=== PATIENT | female | born 1960 | race Caucasian/White ===

== ENCOUNTER → 2021-01-11 11:09 | Outpatient (CLI) | payer OTHER, SELFPAY ==
--- NOTE | 2021-01-11 11:15 | DI.MRI.S_ITS ---
PROCEDURE: MR SHOULDER LT WO CON INDICATIONS: Left Rotator cuff strain TECHNIQUE: Noncontrast oblique coronal T2 fast spin echo with fat saturation, oblique sagittal T1 spin echo and T2 fast spin echo with fat saturation, axial T1 spin echo and T2 fast spin echo with fat saturation through the shoulder. COMPARISON: None. FINDINGS: Image quality: Excellent. Rotator cuff: There is full-thickness tear of the supraspinatus. No tendon retraction. Mild supraspinatus muscle atrophy. There is partial-thickness tear of the infraspinatus and subscapularis tendons with associated tendinosis. Sagittal images demonstrate infraspinatus or subscapularis muscle atrophy. Bones and bursae: No bone marrow contusions or fractures. Moderate acromioclavicular and glenohumeral joint degeneration. The acromion demonstrates conventional anatomy, without an os acromiale. Small subcoracoid bursal fluid is present. Capsule and soft tissues: In the absence of intra-articular contrast, the labrum and glenohumeral ligaments appear intact. The long head of the biceps tendon demonstrates normal location and morphology. The rotator interval appears normal, without fibrosis. The coracohumeral ligament is normal in thickness. IMPRESSION: 1. Full-thickness tear of the supraspinatus tendon. 2. Partial-thickness tear of the infraspinatus and subscapularis tendons. 3. Moderate acromioclavicular and glenohumeral joint degeneration. 4. Small amount of subcoracoid fluid suggesting mild bursitis. Dictated by: Angela Parnell M.D. on 01/11/2021 at 11:43 Transcribed by: MISAEL on 01/11/2021 at 11:47 Approved by: Angela Parnell M.D. on 01/11/2021 at 12:26
== END ==
PROVIDERS: PCP Family Medicine; Referring Provider Family Medicine; Visit Provider Family Medicine
DX: S46.012A Strain of muscle(s) and tendon(s) of the rotator cuff of left shoulder, initial encounter (principal); M19.012 Primary osteoarthritis, left shoulder; X58.XXXA Exposure to other specified factors, initial encounter
CPT/HCPCS: 73221

== ENCOUNTER 2021-05-16 10:19 | Emergency (ER) | payer OTHER, SELFPAY ==
--- NOTE | 2021-05-16 | DI.RAD.S_ITS ---
PROCEDURE: XR WRIST LT MIN 3V INDICATIONS: BROKEN WRIST TECHNIQUE: 4 views of the wrist were acquired. COMPARISON: None. FINDINGS: Bones: No fractures or dislocations. No suspicious bony lesions. Scaphoid view: No trauma to the scaphoid is found but there is a distal radius Colles'fracture, which appears likely intra-articular. Soft tissues: No suspicious soft tissue calcifications. IMPRESSION: Distal radius Colles'fracture, likely a intra-articular. Scaphoid fracture is not found. Dictated by: Lobo Yancey M.D. on 05/16/2021 at 11:18 Approved by: Lobo Yancey M.D. on 05/16/2021 at 11:19
[2021-05-16 10:25] VITALS: BP 122/82; PULSE 70; RESP 14; TEMP 36.3; O2SAT 99
--- NOTE | 2021-05-16 10:36 | DI.RAD.S_ITS ---
PROCEDURE: XR FOREARM LT 2V INDICATIONS: include up to elbow...couldn't find the right order, fall TECHNIQUE: 2 views of the forearm were acquired. COMPARISON: None. FINDINGS: Bones: No dislocations. No suspicious bony lesions. Diagonal fractures are present at the distal radius, best seen on one view only, and possibly extending into the articular surface Soft tissues: No suspicious soft tissue calcifications or masses. IMPRESSION: Distal radius Colles' fracture, possibly intra-articular. Dictated by: Lobo Yancey M.D. on 05/16/2021 at 11:17 Approved by: Lobo Yancey M.D. on 05/16/2021 at 11:18
--- NOTE | 2021-05-16 11:23 | ED.UPPEXIN ---
HPI - Extremity Injury (Upper) General Chief Complaint: Extremity Injury, Upper Stated Complaint: fell in [place] Sat night, suspects broken left arm Time Seen by Provider: 05/16/21 11:19 Source: patient Mode of arrival: Ambulatory Limitations: no limitations History of Present Illness HPI narrative: Patient is a 60-year-old female who presents with left wrist pain and injury. She says 2 days ago she was walking in the was when she got stick in her shoe lace and she tripped and fell. She made a splint and Cob[place] on it starting has a sling from a recent rotator cuff surgery. She has been taking oxycodone for her rotator cuff surgery but is almost out. She says it did help. Tetanus is up-to-date. She denies numbness or tingling in her fingertips. Related Data Home Medications Medication Instructions Recorded Confirmed aspirin 81 mg tablet 81 mg PO DAILY 05/16/21 05/16/21 oxycodone 5 mg tablet 5 mg PO Q4-6H PRN 05/16/21 05/16/21 Previous Rx's Medication Instructions Recorded oxycodone 5 mg tablet 5 mg PO Q6H PRN #10 tab 05/16/21 Allergies Allergy/AdvReac Type Severity Reaction Status Date / Time acetaminophen Allergy Intermediate Rash Verified 05/16/21 10:34 Review of Systems Review of Systems Narrative: GENERAL: Denies chills,fever HEENT: Denies throat pain RESPIRATORY: Denies dyspnea, cough, wheezing CARDIOVASCULAR: Denies chest pain, palpitations GASTROINTESTINAL: Denies nausea, vomiting MUSCULOSKELETAL: See HPI SKIN: No rash, no laceration, no pruritus NEUROLOGIC: Denies weakness, dizziness, headache, numbness 8 point review of systems is negative except for those stated above and HPI Patient History Social History Smoking Status: Former smoker Smoking Status: Former smoker alcohol intake frequency: 3 or more drinks per day Alcohol type: beer Substance Use Type: marijuana Exam Initial Vital Signs Initial Vital Signs: Vital Signs Temperature 97.4 F L 05/16/21 10:25 Pulse Rate 70 05/16/21 10:25 Respiratory Rate 14 05/16/21 10:25 Blood Pressure 122/82 05/16/21 10:25 Pulse Oximetry 99 05/16/21 10:25 GENERAL: Well-appearing, well-nourished and in no acute distress. CARDIOVASCULAR: peripheral pulses in tact, cap refill <2 sec RESPIRATORY: No respiratory distress, speaks in full sentences without difficulty EXTREMITIES: Normal range of motion, no clubbing or edema. Neurovascularly intact Left upper extremity distal radial pulse intact mild swelling sensation between 1st and 2nd digit intact no elbow pain or discomfort. NEUROLOGICAL: Cranial nerves II through XII grossly intact. Normal gait and speech. SKIN: Warm, dry, no petechiae, no rashes or lesions. Procedures Orthopedic Splinting/Casting Injury #1: Upper Extremity Injury Location: wrist Post splinting neuro exam: intact Post splinting vascular exam: intact Placed by: Nursing Course Orders Ordered: ED Orders 05/16/21 10:36 XR forearm LT 2V Stat Vital Signs Vital signs: Vital Signs - 8 hr 05/16/21 10:25 05/16/21 12:44 Temperature 97.4 F L Pulse Rate 70 61 Respiratory Rate 14 Blood Pressure 122/82 148/75 H Pulse Oximetry 99 99 MDM - Extremity Injury (Upper) Imaging Data Extremity x-ray #1: Radiologist's Impression: PROCEDURE: XR WRIST LT MIN 3V INDICATIONS: BROKEN WRIST TECHNIQUE: 4 views of the wrist were acquired. COMPARISON: None. FINDINGS: Bones: No fractures or dislocations. No suspicious bony lesions. Scaphoid view: No trauma to the scaphoid is found but there is a distal radius Colles'fracture, which appears likely intra-articular. Soft tissues: No suspicious soft tissue calcifications. IMPRESSION: Distal radius Colles'fracture, likely a intra-articular. Scaphoid fracture is not found. Dictated by: Lobo Yancey M.D. on 05/16/2021 at 11:18 Approved by: Lobo Yancey M.D. on 05/16/2021 at 11:19 Extremity x-ray #2: Radiologist's Impression: PROCEDURE: XR FOREARM LT 2V INDICATIONS: include up to elbow...couldn't find the right order, fall TECHNIQUE: 2 views of the forearm were acquired. COMPARISON: None. FINDINGS: Bones: No dislocations. No suspicious bony lesions. Diagonal fractures are present at the distal radius, best seen on one view only, and possibly extending into the articular surface Soft tissues: No suspicious soft tissue calcifications or masses. IMPRESSION: Distal radius Colles' fracture, possibly intra-articular. Dictated by: Lobo Yancey M.D. on 05/16/2021 at 11:17 Approved by: Lobo Yancey M.D. on 05/16/2021 at 11:18 Discharge Plan Departure Patient Disposition: Home Clinical Impression: Closed fracture of left distal radius Instructions: DI for Wrist Fracture Activity Restrictions/Additional Instructions: *You have been diagnosed with left wrist fracture *What to do: Keep wrist and splint at all times. He will need to follow-up with orthopedics to ensure proper healing. May use sling. Elevate and ice as needed. *Continue to take medications as directed Oxycodone 5 mg every 6 hours only if needed for severe pain if you should need more pain medication you need to talk with primary care provider *Follow up with your primary care provider in 2-3 days Call orthopedics tomorrow to schedule follow-up appointment *Return to ER if you should have increasing numbness tingling swelling pain or any new, worsening or concerning symptoms CONTROLLED SUBSTANCE DISCHARGE (Narcotoic/benzodiazepine/Flexeril/Phenergan) 1. You have been prescribed narcotic medications, it does have acetaminophen/Tylenol/paracetamol in it, DO NOT TAKE MORE THAN 4,00mg in 24 hours of Tylenol. TRAMADOL DOES NOT CONTAIN TYLENOL 2. Please understand that we cannot provide further refills of narcotics, benzodiazepines or controlled substances through the ED and her pain management will need to be through your provider. 3. While on these medications you cannot drive or operate heavy machinery. 4. You cannot sign legal documents or perform any duties such as this. 5. As long as you're taking opiate pain medications he should also be taking a stool softener such as Colace, Dulcolax, MiraLAX or prune juice, to help avoid constipation. Prescriptions: New oxycodone 5 mg tablet 5 mg PO Q6H PRN (Reason: pain) Qty: 10 RF: 0 No Action Adult Low Dose Aspirin 81 mg Tablet 81 mg PO DAILY RF: 0 oxycodone 5 mg tablet 5 mg PO Q4-6H PRN (Reason: Pain (Scale Score 7-10)) RF: 0 Referrals: Moose Botello MD [Physician] -
[2021-05-16 12:44] VITALS: BP 148/75; PULSE 61; O2SAT 99
== END 2021-05-16 13:08 | disposition home or self-care (01) ==
PROVIDERS: Emergency Provider Emergency Medicine
DX: S52.502A Unspecified fracture of the lower end of left radius, initial encounter for closed fracture (principal); W19.XXXA Unspecified fall, initial encounter
CPT/HCPCS: 29125; 73090; 73110; 99283

== ENCOUNTER → 2021-08-18 08:49 | Outpatient (CLI) | payer OTHER, SELFPAY ==
[2021-08-18 20:01] LABS: Add Manual Diff / Slide Review NO; Basophils Absolute Auto 100 /uL (0-100); Basophils Percent Auto 0.6 % (0-2); Eosinophils Absolute Auto 100 /uL (0-450); Eosinophils Percent Auto 1.1 % (2-4); Hematocrit 42.4 % (36-46); Hemoglobin 14.4 g/dL (12.0-16.0); Lymphocytes Absolute Auto 2300 /uL (1100-4500); Lymphocytes Percent Auto 28.8 % (25-40); Mean Corpuscular Hemoglobin 32.7 PG (26-34); Mean Corpuscular Volume 96.3 fL (80-100); Monocytes Absolute Auto 600 /uL (0-900); Monocytes Percent Auto 7.1 % (3-14); Neutrophils Absolute Auto 4900 /uL (1500-7000); Neutrophils Percent Auto 62.4 % (50-75); Platelet Count 210 X10^3/uL (150-400); Red Blood Cell Count 4.41 X10^6/uL (4.0-5.2); White Blood Cell Count 7.8 X10^3/uL (4.5-11.0)
[2021-08-18 20:12] LABS: Alanine Aminotransferase 18 IU/L (<35); Albumin 4.3 g/dL (3.5-5.0); Albumin Globulin Ratio 1.5 (1.0-2.8); Alkaline Phosphatase 64 U/L (38-126); Aspartate Aminotransferase 36 IU/L (14-36); BUN Creatinine Ratio 12.5 (6-22); Bilirubin Total 0.5 mg/dL (0.2-1.3); Blood Urea Nitrogen 7 mg/dL (7-17); Calcium 9.8 mg/dL (8.4-10.2); Carbon Dioxide 33 mmol/L (22-32); Chloride 98 mmol/L (98-107); Estimated Glomerular Filt Rate > 60.0 mL/min (>60); Globulin 2.8 g/dL (1.7-4.1); Glucose 64 mg/dL (70-100); HEMOLYSIS < 15 (0-50); Potassium 4.2 mmol/L (3.4-5.1); Sodium 136 mmol/L (137-145); Total Protein 7.1 g/dL (6.3-8.2)
[2021-08-18 20:42] LABS: TSH w/ Reflex to FT4 1.75 uIU/mL (0.47-4.68)
== END ==
PROVIDERS: PCP Physician Assistant Medical; Visit Provider Physician Assistant Medical
DX: N39.0 Urinary tract infection, site not specified (principal); N63.10 Unspecified lump in the right breast, unspecified quadrant; R79.89 Other specified abnormal findings of blood chemistry; Z11.3 Encounter for screening for infections with a predominantly sexual mode of transmission; Z12.4 Encounter for screening for malignant neoplasm of cervix
CPT/HCPCS: 80053; 84443; 85025

== ENCOUNTER → 2022-08-21 13:08 | Outpatient (CLI) | payer OTHER, SELFPAY ==
[2022-08-21 19:10] LABS: Add Manual Diff / Slide Review NO; Basophils Absolute Auto 0 /uL (0-100); Basophils Percent Auto 0.7 % (0-2); Eosinophils Absolute Auto 100 /uL (0-450); Eosinophils Percent Auto 1.2 % (2-4); Hematocrit 37.9 % (36-46); Hemoglobin 13.4 g/dL (12.0-16.0); Lymphocytes Absolute Auto 2100 /uL (1100-4500); Lymphocytes Percent Auto 45.2 % (25-40); Mean Corpuscular HGB Conc 35.4 % (30-36); Mean Corpuscular Volume 93.2 fL (80-100); Monocytes Absolute Auto 400 /uL (0-900); Neutrophils Absolute Auto 2100 /uL (1500-7000); Neutrophils Percent Auto 43.9 % (50-75); Platelet Count 231 X10^3/uL (150-400); Red Blood Cell Count 4.07 X10^6/uL (4.0-5.2); White Blood Cell Count 4.7 X10^3/uL (4.5-11.0)
[2022-08-21 19:17] LABS: Alanine Aminotransferase 16 IU/L (<35); Albumin 3.9 g/dL (3.5-5.0); Albumin Globulin Ratio 1.3 (1.0-2.8); Alkaline Phosphatase 48 U/L (38-126); Aspartate Aminotransferase 33 IU/L (14-36); BUN Creatinine Ratio 9.1 (6-22); Bilirubin Total 0.5 mg/dL (0.2-1.3); Blood Urea Nitrogen 6 mg/dL (7-17); Calcium 9.4 mg/dL (8.4-10.2); Carbon Dioxide 26 mmol/L (22-32); Chloride 97 mmol/L (98-107); Cholesterol 200 mg/dL (140-199); Estimated Glomerular Filt Rate > 60 mL/min (>60); Globulin 2.9 g/dL (1.7-4.1); Glucose 91 mg/dL (80-110); HDL Cholesterol 104 mg/dL (40-60); HEMOLYSIS < 15 (0-50); LDL Cholesterol Calculated 88 mg/dL (<100); Sodium 131 mmol/L (137-145); Total Protein 6.8 g/dL (6.3-8.2); Triglycerides 38 mg/dL (35-150)
[2022-08-21 19:27] LABS: Rheumatoid Factor < 8.6 IU/mL (<12.0)
[2022-08-21 19:41] LABS: Erythrocyte Sedimentation Rate 5 MM/HR (0-20)
[2022-08-21 19:43] LABS: TSH w/ Reflex to FT4 0.93 uIU/mL (0.47-4.68)
[2022-08-24 18:42] LABS: ANA Screen, IFA Negative (.)
[2022-08-24 20:48] LABS: CCP Antibodies IgG/IgA 4 units (0-19)
== END ==
PROVIDERS: PCP Physician Assistant Medical; Visit Provider Family Medicine
DX: K21.9 Gastro-esophageal reflux disease without esophagitis (principal); M25.50 Pain in unspecified joint; R00.2 Palpitations
CPT/HCPCS: 80053; 80061; 84443; 85025; 85651; 86038; 86200; 86430

== ENCOUNTER → 2022-09-22 10:36 | Outpatient (CLI) | payer OTHER, SELFPAY ==
[2022-09-22 19:20] LABS: COVID19 - ORCAS (NP or Nasal) Negative (Negative)
== END ==
PROVIDERS: PCP Physician Assistant Medical; Visit Provider Physician Assistant Medical
DX: Z20.822 Contact with and (suspected) exposure to COVID-19 (principal); Z01.812 Encounter for preprocedural laboratory examination
CPT/HCPCS: U0003

== ENCOUNTER → 2023-02-02 15:13 | Outpatient (CLI) | payer OTHER, SELFPAY ==
--- NOTE | 2023-02-03 03:32 | DI.NM.S_ITS ---
DATE OF SERVICE: 02/02/2023 PROCEDURE: Exercise stress test. INDICATIONS: Exertional fatigue, shortness of breath. CARDIAC STRESS: The patient underwent exercise stress test under the supervision of an attending staff. The patient walked on John protocol for 12 minutes and 42 seconds, achieved 102% of target heart rate, 12.8 METs of workload and KAYA -83%. Resting blood pressure 118/70 and peak blood pressure 176/82 mmHg. Baseline electrocardiogram sinus. During stress, no convincing ischemic EKG changes seen. No significant arrhythmias seen. No chest pain or anginal symptoms. CONCLUSION: 1. Exercise stress test is negative for inducible ischemia. 2. Excellent exercise tolerance. KAYA -83%. Walked on John protocol for 12 minutes and 42 seconds. Normal hemodynamic response. No significant arrhythmias or anginal symptoms. Overall, low-risk exercise stress test. Cynthia Montano - AAKASH/wilma/simone doc#: [id number]/job#: [id number] dd: 02/02/2023 17:13:00 dt: 02/03/2023 02:17:00 DICTATING /COPIES TO: Daniel Chowdhury MD COPIES MNE: TAMI;
== END ==
PROVIDERS: PCP Naturopath; Referring Provider Family Medicine; Visit Provider Family Medicine
DX: R00.2 Palpitations (principal); M25.50 Pain in unspecified joint; K21.9 Gastro-esophageal reflux disease without esophagitis
CPT/HCPCS: 93017

== ENCOUNTER 2023-11-05 18:28 | Emergency (ER) | payer OTHER, SELFPAY ==
[2023-11-05 18:34] VITALS: BP 167/80; PULSE 72; RESP 16; TEMP 36.8; O2SAT 98; BMI 20.7
[2023-11-05 20:05] VITALS: PULSE 71; O2SAT 96
[2023-11-05 20:30] VITALS: PULSE 76; O2SAT 98
[2023-11-05 20:31] VITALS: BP 127/87; PULSE 79; O2SAT 97
--- NOTE | 2023-11-05 20:31 | ED_ITS ---
HPI - General Adult General Chief complaint: Ear Stated complaint: bad ear ache Time Seen by Provider: 11/05/23 20:03 Source: patient Mode of arrival: Ambulatory History of Present Illness HPI narrative: Patient is a 63-year-old female who is here for evaluation of left ear pain. She states that the ear has been uncomfortable for the past several days. She was was pain in the left side of her throat. Pain and left side of her neck. Subjective fevers. She did put some peroxide in her left ear without any improvement. She also feels like it has been draining. Related Data Home Medications Medication Instructions Recorded Confirmed aspirin 81 mg tablet 81 mg PO DAILY 05/16/21 08/08/22 omeprazole 20 mg capsule,delayed 40 mg PO DAILY Patient changed dose 08/08/22 08/08/22 release Previous Rx's Medication Instructions Recorded albuterol sulfate 90 mcg/actuation 2 puff inhalation Q6H PRN 12/05/22 aerosol inhaler shortness of breath or wheezing #6.7 grams amoxicillin 875 mg tablet 875 mg PO BID 7 days #14 tabs 11/05/23 ciprofloxacin 0.3 %-dexamethasone 4 drp EAR-LEFT BID 7 days #7.5 mL 11/05/23 0.1 % ear drops,suspension Allergies Allergy/AdvReac Type Severity Reaction Status Date / Time acetaminophen Allergy Intermediate Rash Verified 08/18/21 09:00 Review of Systems Constitutional Constitutional: Reports system reviewed and no additional complaints, except as documented ENT Ears, Nose, Mouth, and Throat: Reports system reviewed and no additional complaints, except as documented Respiratory Respiratory: Reports system reviewed and no additional complaints, except as documented Integumentary/Breasts Skin/Breast: Reports system reviewed and no additional complaints, except as documented Patient History Medical History Chronic cough Hand pain Wears glasses Hearing loss Eczema (~1968) Acne (~1971) Osteoarthritis (~2011) Left wrist fracture (~2020) Chronic back pain (~1993) Carpal tunnel syndrome (~2013) Mumps (~1965) Chicken pox (~1965) Sinus infection Cataracts, bilateral Ovarian cyst Abnormal Pap smear of cervix (~1999) Palpitations Polyarthralgia GERD (gastroesophageal reflux disease) Surgical History Anesthesia History of shoulder replacement (~2015) S/P ACL reconstruction S/P lateral meniscal repair (~2012) S/P rotator cuff repair (~2020) Family History Grandfather History of heart disease Grandmother History of heart disease Grandfather Parkinson's disease Grandmother Diverticulitis Social History Smoking Status: Former smoker Smoking Status: Former smoker alcohol intake frequency: 3 or more drinks per day Alcohol type: beer Substance Use Type: marijuana Exam Initial Vital Signs Initial Vital Signs: Vital Signs Temperature 98.2 F 11/05/23 18:34 Pulse Rate 72 11/05/23 18:34 Respiratory Rate 16 11/05/23 18:34 Blood Pressure 167/80 H 11/05/23 18:34 Pulse Oximetry 98 11/05/23 18:34 Oxygen Delivery Method Room Air 11/05/23 18:34 HENMT Ears: external ears normal, TM normal on the right, EAC abnormal erythema on the left, edema on the left and EAC tenderness on the left; no foreign body and TM abnormal bulging on the left, bullous on the left, dull on the left, erythematous on the left and with fluid behind the TM on the left Mouth: oral mucosae normal, lip normal, oropharynx normal and moist mucous membranes Throat: posterior oropharynx normal, uvula midline and normal posterior oropharynx Neck Lymphatic: lymphadenopathy (Left anterior cervical) Skin General: no rashes or lesions noted Course Orders Ordered: Discontinued Medications Ibuprofen (Ibuprofen 400 Mg Tablet) 800 mg PO NOW ONE Stop: 11/05/23 20:32 Last Admin: 11/05/23 20:35 Dose: 800 mg Documented By: BB Vital Signs Vital signs: Vital Signs - 8 hr 11/05/23 18:34 11/05/23 20:05 11/05/23 20:30 Temperature 98.2 F Pulse Rate 72 71 76 Respiratory Rate 16 Blood Pressure 167/80 H Pulse Oximetry 98 96 98 Oxygen Delivery Method Room Air 11/05/23 20:31 11/05/23 20:31 Temperature Pulse Rate 79 Respiratory Rate Blood Pressure 127/87 Pulse Oximetry 97 Oxygen Delivery Method Medical Decision Making MDM Narrative Medical decision making narrative: Patient has physical exam today that is consistent with both otitis externa and otitis media. I did not see a specific tympanic membrane rupture however given the drainage from the ear this could have been from either the otitis externa or potentially rupture. I advised the patient not put anything in her ear except the ear drops that were prescribed today. We will place her on antibiotic ear drops and oral antibiotics as well. No respiratory distress discussed return precautions and follow-up instructions. She expressed understanding and agreement. Discharge Plan Departure Patient Disposition: Home Clinical Impression: Otitis externa, Otitis media Instructions: Middle Ear Infection, DI for Otitis Externa Activity Restrictions/Additional Instructions: You can take ibuprofen for any discomfort. Prescriptions for ear drops and oral antibiotics were sent to [facility] here in [place]. Contact your primary care doctor for follow-up. Return to the emergency department for new or worsening symptoms. Prescriptions: New ciprofloxacin-dexamethasone 0.3-0.1 % drops,suspension 4 drp EAR-LEFT BID 7 Days Qty: 7.5 0RF amoxicillin 875 mg tablet 875 mg PO BID 7 Days Qty: 14 0RF No Action Adult Low Dose Aspirin 81 mg Tablet 81 mg PO DAILY omeprazole 20 mg capsule,delayed release(DR/EC) 40 mg PO DAILY albuterol sulfate 90 mcg/actuation HFA aerosol inhaler 2 puff inhalation Q6H PRN (Reason: shortness of breath or wheezing) Qty: 6.7 1RF Referrals: Rosanna Bobby ND [Primary Care Provider] - Stand Alone Forms: Patient Portal/API
[2023-11-05] MEDS: IBUPROFEN 400 MG TABLET 800 MG PO (20:35)
== END 2023-11-05 20:46 | disposition home or self-care (01) ==
PROVIDERS: Emergency Provider Emergency Medicine; PCP Naturopath
DX: H60.93 Unspecified otitis externa, bilateral (principal); H66.93 Otitis media, unspecified, bilateral
CPT/HCPCS: 99282; 99283

== ENCOUNTER → 2024-09-29 09:06 | Outpatient (CLI) | payer BC, SELFPAY ==
[2024-09-29 19:22] LABS: Add Manual Diff / Slide Review NO; Basophils Absolute Auto 0 /uL (0-100); Eosinophils Absolute Auto 100 /uL (0-450); Eosinophils Percent Auto 1.5 % (2-4); Hematocrit 40.8 % (36-46); Hemoglobin 13.8 g/dL (12.0-16.0); Lymphocytes Absolute Auto 1900 /uL (1100-4500); Lymphocytes Percent Auto 49.7 % (25-40); Mean Corpuscular HGB Conc 33.9 % (30-36); Mean Corpuscular Hemoglobin 32.8 PG (26-34); Mean Corpuscular Volume 96.7 fL (80-100); Monocytes Absolute Auto 300 /uL (0-900); Monocytes Percent Auto 8.4 % (3-14); Neutrophils Absolute Auto 1500 /uL (1500-7000); Neutrophils Percent Auto 39.4 % (50-75); Platelet Count 230 X10^3/uL (150-400); Red Blood Cell Count 4.22 X10^6/uL (4.0-5.2); White Blood Cell Count 3.9 X10^3/uL (4.5-11.0)
[2024-09-29 19:32] LABS: Alanine Aminotransferase 20 IU/L (<35); Albumin 3.9 g/dL (3.5-5.0); Albumin Globulin Ratio 1.3 (1.0-2.8); Alkaline Phosphatase 44 U/L (38-126); Aspartate Aminotransferase 38 IU/L (14-36); BUN Creatinine Ratio 13.6 (6-22); Bilirubin Total 0.8 mg/dL (0.2-1.3); Blood Urea Nitrogen 9 mg/dL (7-17); Calcium 9.8 mg/dL (8.4-10.2); Carbon Dioxide 28 mmol/L (22-32); Chloride 101 mmol/L (98-107); Cholesterol 232 mg/dL (140-199); Estimated Glomerular Filt Rate > 60 mL/min (>60); Glucose 96 mg/dL (80-110); HDL Cholesterol 99 mg/dL (40-60); HEMOLYSIS < 15 (0-50); LDL Cholesterol Calculated 122 mg/dL (<100); Potassium 4.1 mmol/L (3.4-5.1); Sodium 132 mmol/L (137-145); Total Protein 6.9 g/dL (6.3-8.2); Triglycerides 53 mg/dL (35-150)
[2024-09-29 20:01] LABS: TSH w/ Reflex to FT4 2.05 uIU/mL (0.47-4.68)
[2024-09-29 20:19] LABS: HIV 1 & 2 Ab/Ag 4th Gen Combo NEGATIVE (NEGATIVE); Hep C Virus Ab w/Reflex Quant NEGATIVE s/c (NEGATIVE)
== END ==
PROVIDERS: PCP Physician Assistant; Visit Provider Physician Assistant
DX: Z13.6 Encounter for screening for cardiovascular disorders (principal); Z12.11 Encounter for screening for malignant neoplasm of colon; Z79.899 Other long term (current) drug therapy; H26.9 Unspecified cataract; R00.2 Palpitations; R79.89 Other specified abnormal findings of blood chemistry
CPT/HCPCS: 80053; 80061; 84443; 85025; 86803; 87389

== ENCOUNTER → 2025-04-07 09:08 | Outpatient (CLI) | payer OTHER, SELFPAY ==
[2025-04-07 19:40] LABS: Add Manual Diff / Slide Review NO; Basophils Absolute Auto 0 /uL (0-100); Basophils Percent Auto 0.9 % (0-2); Eosinophils Absolute Auto 100 /uL (0-450); Eosinophils Percent Auto 2.1 % (2-4); Hematocrit 40.7 % (36-46); Hemoglobin 14.3 g/dL (12.0-16.0); Lymphocytes Absolute Auto 2200 /uL (1100-4500); Lymphocytes Percent Auto 39.9 % (25-40); Mean Corpuscular HGB Conc 35.2 % (30-36); Mean Corpuscular Hemoglobin 33.6 PG (26-34); Mean Corpuscular Volume 95.6 fL (80-100); Monocytes Absolute Auto 400 /uL (0-900); Monocytes Percent Auto 8.2 % (3-14); Neutrophils Absolute Auto 2700 /uL (1500-7000); Neutrophils Percent Auto 48.9 % (50-75); Platelet Count 213 X10^3/uL (150-400); Red Blood Cell Count 4.25 X10^6/uL (4.0-5.2); Red Cell Distribution Width 12.1 % (11.6-14.8); White Blood Cell Count 5.5 X10^3/uL (4.5-11.0)
[2025-04-07 19:59] LABS: Alanine Aminotransferase 24 IU/L (<35); Albumin 4.6 g/dL (3.5-5.0); Albumin Globulin Ratio 1.6 (1.0-2.8); Alkaline Phosphatase 59 U/L (38-126); Aspartate Aminotransferase 49 IU/L (14-36); BUN Creatinine Ratio 12.7 (6-22); Bilirubin Total 0.7 mg/dL (0.2-1.3); Blood Urea Nitrogen 8 mg/dL (7-17); Calcium 9.7 mg/dL (8.4-10.2); Carbon Dioxide 29 mmol/L (22-32); Chloride 98 mmol/L (98-107); Cholesterol 269 mg/dL (140-199); Estimated Glomerular Filt Rate > 60 mL/min (>60); Globulin 2.8 g/dL (1.7-4.1); Glucose 81 mg/dL (70-99); HEMOLYSIS < 15 (0-50); Potassium 4.4 mmol/L (3.4-5.1); Sodium 134 mmol/L (137-145); Total Protein 7.4 g/dL (6.3-8.2); Triglycerides 65 mg/dL (35-150)
[2025-04-07 20:05] LABS: HDL Cholesterol 118 mg/dL (40-60); LDL Cholesterol Calculated 138 mg/dL (<100)
[2025-04-07 20:29] LABS: TSH w/ Reflex to FT4 0.44 uIU/mL (0.47-4.68)
[2025-04-07 21:18] LABS: Free T4, Direct Thyroxine 1.09 ng/dL (0.78-2.19)
== END ==
PROVIDERS: PCP Physician Assistant; Visit Provider Physician Assistant
DX: E78.00 Pure hypercholesterolemia, unspecified (principal); R00.2 Palpitations; R79.89 Other specified abnormal findings of blood chemistry; E87.1 Hypo-osmolality and hyponatremia
CPT/HCPCS: 80053; 80061; 84439; 84443; 85025

== ENCOUNTER → 2025-05-25 11:08 | Outpatient (CLI) | payer OTHER, SELFPAY ==
--- NOTE | 2025-05-25 11:10 | DI.RAD.S_ITS ---
PROCEDURE: XR DEXA AXIAL SKELETON INDICATIONS: bone density screening COMPARISON: None. FINDINGS: Lumbar Spine: Bone mineral density 0.678 g/cm2, T score -3.4. Left Femoral Neck: Bone mineral density 0.637 g/cm2, T score -1.9. Left Hip: Bone mineral density 0.759 g/cm2, T score -1.5. Fracture Risk Calculation (when applicable): 10-year fracture risk of a major osteoporotic fracture 16 percent and of a hip fracture 1.2 percent. (T score greater or equal to -1.0 to: NORMAL) (T score from -1.1 to -2.4: OSTEOPENIA) (T score less than or equal to -2.5: OSTEOPOROSIS) IMPRESSION: Osteoporosis--- recommend repeat DEXA in 2 years or less for reassessment of response to treatment. Follow-up guidelines as follows: Osteoporosis: Consider a repeat DEXA and Vertebral Fracture Assessment (VFA) exam in 2 years or sooner if medically necessary, to reassess this patient's status. Osteopenia: Consider a repeat DEXA in 2-3 years to reassess this patient's status, or if there is a new clinical indication. Normal: Consider a repeat DEXA in 5 years or sooner, or if there is a new clinical indication. All treatment decisions require clinical judgment and consideration of individual patient factors, including patient preferences, comorbidities, previous drug use, risk factors not captured in the FRAX model (e.g., frailty, falls, vitamin D deficiency, increased bone turnover, interval significant decline in bone density ) and possible under- or over-estimation of fracture risk by FRAX. In addition, the NOF Guide recommends that FDA-approved medical therapies be considered in postmenopausal women and men age >= 50 years with a: * Hip or vertebral (clinical or morphometric) fracture * T-score of <=-2.5 at the spine or hip * Ten-year fracture probability by FRAX of >= 3% for hip fracture or >=20% for major osteoporotic fracture. Dictated by: Moises Rodriguez M.D. on 05/25/2025 at 19:10 Approved by: Moises Rodriguez M.D. on 05/25/2025 at 19:12
== END ==
PROVIDERS: PCP Physician Assistant; Referring Provider Nurse Practitioner Adult Health; Visit Provider Nurse Practitioner Adult Health
DX: M81.0 Age-related osteoporosis without current pathological fracture (principal); Z78.0 Asymptomatic menopausal state
CPT/HCPCS: 77080

== ENCOUNTER → 2025-09-03 09:57 | Outpatient (CLI) | payer OTHER, SELFPAY ==
[2025-09-03 19:10] LABS: Alanine Aminotransferase 30 IU/L (<35); Albumin 4.4 g/dL (3.5-5.0); Albumin Globulin Ratio 1.6 (1.0-2.8); Alkaline Phosphatase 59 U/L (38-126); Blood Urea Nitrogen 6 mg/dL (7-17); Calcium 9.4 mg/dL (8.4-10.2); Carbon Dioxide 27 mmol/L (22-32); Chloride 95 mmol/L (98-107); Cholesterol 176 mg/dL (140-199); Estimated Glomerular Filt Rate > 60 mL/min (>60); Globulin 2.7 g/dL (1.7-4.1); Glucose 80 mg/dL (70-99); HDL Cholesterol 105 mg/dL (40-60); HEMOLYSIS < 15 (0-50); Potassium 4.5 mmol/L (3.4-5.1); Sodium 131 mmol/L (137-145); Total Protein 7.1 g/dL (6.3-8.2); Triglycerides 46 mg/dL (35-150); Uric Acid 3.4 mg/dL (2.5-6.2)
[2025-09-03 19:45] LABS: TSH w/ Reflex to FT4 1.11 uIU/mL (0.47-4.68)
== END ==
PROVIDERS: PCP Physician Assistant; Visit Provider Physician Assistant
DX: R29.898 Other symptoms and signs involving the musculoskeletal system (principal); M81.0 Age-related osteoporosis without current pathological fracture; M20.009 Unspecified deformity of unspecified finger(s); Z79.899 Other long term (current) drug therapy; E78.00 Pure hypercholesterolemia, unspecified; R79.89 Other specified abnormal findings of blood chemistry
CPT/HCPCS: 80053; 80061; 84443; 84550; 85651; 86038; 86430